=== PATIENT | female | born 1980 | race Caucasian/White ===

== ENCOUNTER 2016-06-27 21:55 | Emergency (ER) | payer MEDICAID ==
[~2016-06-27] VITALS: Ht 170.2 cm; Wt 75.0 kg
[2016-06-28] MEDS ORDERED: ONDANSETRON 4MG ODT PO ONE (00:15)
[2016-06-28] MEDS ORDERED: ACETAMINOPHEN 500MG TABLET PO ONE (00:15)
[2016-06-28 00:34] LABS: BASOPHILS % 0.4 % (0.0-2.0); EOSINOPHILS % 0.2 % (0.0-5.0); HEMATOCRIT. 35.8 % (36.0-48.0); LYMPHOCYTES % 14.8 % (20.0-50.0); MEAN CORPUSCULAR HGB CONC 33.5 g/dL (31.0-37.0); MEAN CORPUSCULAR VOLUME 89.5 fL (81.0-99.0); MEAN PLATELET VOLUME 6.6 fl (7.4-10.4); NEUTROPHILS % 81.6 % (40.0-76.0); PLATELET 345 x1000/uL (130-400); RED CELL DISTRIBUTION WIDTH 14.6 % (11.6-14.6)
[2016-06-28 00:40] LABS: CHLORIDE 107 mEq/L (98-107); INDEX HEMOLYSI 1 (1-3); INDEX ICTERIC 1 (1-4); INDEX LIPEMIC 1 (1-3)
[2016-06-28 00:44] LABS: INR 1.1; PROTHROMBIN TIME 10.9 sec
[2016-06-28 00:49] LABS: ALANINE AMINOTRANSFERASE 23 IU/L (13-61); ALBUMIN 3.5 g/dL (3.4-5.0); ANION GAP 15; CALCIUM 8.1 mg/dL (8.5-10.1); CARBON DIOXIDE 23 mEq/L (21-32); LIPASE 180 IU/L (73-393); UREA NITROGEN BLOOD 13 mg/dL (7-21); eGFR > 60 mL/min (>60)
[2016-06-28 02:00] VITALS: BP 99/60
[2016-06-28 02:02] LABS: CLARITY URINE TURBID (CLEAR); COLOR URINE YELLOW (YELLOW); GLUCOSE URINE NEGATIVE (NEGATIVE); KETONES URINE TRACE (NEGATIVE); LEUKOCYTE ESTERASE URINE TRACE (NEGATIVE); NITRITE URINE NEGATIVE (NEGATIVE); OCCULT BLOOD URINE 3+ (NEGATIVE); PROTEIN URINE 1+ (NEGATIVE); SPECIFIC GRAVITY URINE 1.024 (1.005-1.030)
[2016-06-28 02:19] LABS: SQUAMOUS EPITHELIAL CELL URINE FEW /lpf (RARE/1+)
[2016-06-28 02:20] LABS: BACTERIA URINE 4+
== END 2016-06-28 03:25 | disposition home or self-care (01) ==
LOC: ER 22:06
DX: N39.0 Urinary tract infection, site not specified (principal); K42.9 Umbilical hernia without obstruction or gangrene; Z87.442 Personal history of urinary calculi
CPT/HCPCS: 36415; 76705; 80053; 81001; 81025; 83690; 85025; 85610; 99285; Q0162; Z7610